=== PATIENT | male | born 1985 | race Two or more races ===

== ENCOUNTER 2024-02-15 11:31 | Emergency (ER) | payer MEDICAID, OTHER ==
[~2024-02-15] VITALS: Ht 180.3 cm; Wt 81.8 kg
--- NOTE | 2024-02-15 12:38 | DVH ---
INDICATION: PAIN POST LIFTING TECHNIQUE: 2 views of the lumbar spine were obtained. COMPARISON: None FINDINGS: There are no acute fractures or subluxations. IMPRESSION: No acute fracture or subluxation.
[2024-02-15 13:01] VITALS: BP 128/77; PULSE 76; RESP 16; TEMP 97.5; O2SAT 98
[2024-02-15] MEDS ORDERED: IBUP-1456 PO (13:38)
[2024-02-15] MEDS ORDERED: PRED20TA2 PO (13:38)
--- NOTE | 2024-02-15 13:40 | ED.PDOC ---
Back pain HPI HPI Comments A 38 YEAR OLD MALE PRESENTS TO THE ED WITH CHIEF COMPLAINT OF LOWER BACK PAIN. PATIENT REPORTS THAT HE HAD BEEN LIFTING AND LOWERING BOXES YESTERDAY WHEN ALL OF A SUDDEN, HE FELT A "POP" IN HIS LOWER BACK AND IS NOW UNABLE TO STAND UP WELL WITHOUT PAIN. PATIENT RELAYS THAT HIS PAIN RADIATES DOWN HIS LEFT LEG. PATIENT DENIES ANY NUMBNESS, WEAKNESS, DIZZINESS, FALL, OR INJURY. Chief Complaint: Back Pain Time Seen by MD: 13:37 Primary Care Provider: NONE Reviewed Notes: Nurses Notes, Medications, Allergies Home Meds Active Scripts Prednisone (Prednisone) 20 Mg Tab, 40 MG PO DAILY, #20 TAB Prov:SOLIS ELLER 02/15/24 Ibuprofen (Ibuprofen) 800 Mg Tab, 1 TAB PO TID, #30 TAB Prov:SOLIS ELLER 02/15/24 Information Source: Patient Mode of Arrival: Wheelchair Timing: Days Duration: Since onset Location of Back pain: (B) Lower back Radiates to: Posterior: (L) Thigh Severity: Moderate Prehospital treatment: None Quality: Sharp Onset: Bending, Lifing History of: None Modifying Factors: Nothing Associated signs and symptoms: None Past Medical History PAST MEDICAL HISTORY: Denies Surgical History: Denies all surgeries Family History Family History: Reviewed,noncontributory to illness Social History Smoker: Non-Smoker Alcohol: Denies ETOH Use Drugs: Denies Drug Use Lives In: Home Constitutional: denies: chills, diaphoresis, fatigue, fever, malaise, sweats, weakness, others EENTM: denies: blurred vision, double vision, ear bleeding, ear discharge, ear drainage, ear pain, ear ringing, eye pain, eye redness, hearing loss, mouth pain, mouth swelling, nasal discharge, nose bleeding, nose congestion, nose pain, photophobia, tearing, throat pain, throat swelling, voice changes, others Respiratory: denies: cough, hemoptysis, orthopnea, SOB at rest, shortness of breath, SOB with excertion, stridor, wheezing, others Cardiovascular: denies: chest pain, dizzy spells, diaphoresis, Dyspnea on exertion, edema, irregular heart beat, left arm pain, lightheadedness, palpitations, PND, syncope, others Gastrointestinal: denies: abdomen distended, abdominal pain, blood streaked bowels, constipated, diarrhea, dysphagia, difficulty swallowing, hematemesis, melena, nausea, poor appetite, poor fluid intake, rectal bleeding, rectal pain, vomiting, others Genitourinary: denies: burning, dysuria, flank pain, frequency, hematuria, incontinence, penile discharge, penile sore, pain, testicle pain, testicle swelling, urgency, others Neurological: denies: dizziness, fainting, headache, left sided numbness, left sided weakness, numbness, paresthesia, pre-existing deficit, right sided numbness, right sided weakness, seizure, speech problems, tingling, tremors, weakness, others Musculoskeletal: reports: back pain, muscle pain; denies: gout, joint pain, joint swelling, muscle stiffness, neck pain, others Integumetry: denies: bruises, change in color, change in hair/nails, dryness, laceration, lesions, lumps, rash, wounds, others Allergic/Immunocompromised: denies: Difficulty Healing, Frequent Infections, Hives, Itching, others Hematologic/Lymphatic: denies: anemia, blood clots, easy bleeding, easy bruising, swollen glands, others Endocrine: denies: excessive hunger, excessive sweating, excessive thirst, excessive urination, flushing, intolerance to cold, intolerance to heat, unexplained weight gain, unexplained weight loss, others Psychiatric: denies: anxiety, bipolar disorder, depression, hopeless, panic disorder, schizophrenia, sleepless, suicidal, others All Other Systems: Reviewed and Negative Physical Exam General Appearance: No Apparent Distress, Normal HEENT: Normal ENT Inspection, PERRL/EOMI, Pharynx Normal Neck: Full Range of Motion, Non-Tender, Normal, Normal Inspection Respiratory: Chest Non-Tender, Lungs Clear, No Accessory Muscle Use, No Respiratory Distress, Normal Breath Sounds Cardiovascular: No Edema, No JVD, No Murmur, No Gallop, Normal Peripheral Pulses, Regular Rate/Rhythm Breast Exam: Deferred Gastrointestinal: No Organomegaly, Non Tender, No Pulsatile Mass, Normal Bowel Sounds, Soft Genitalia: Deferred Pelvic: Deferred Rectal: Deferred Extremities: No calf tenderness, Normal capillary refill, Normal inspection, Normal range of motion, Non-tender, No pedal edema Musculoskeletal : Location: Bilateral Extremity Location: Back Apperance: Tenderness: Moderate (TENDERNESS AND MUSCLE SPASM ON LOWER BACK, NO BONY TENDERNESS, SWELLING AND DEFORMITY. ) Neurologic: Alert, gandy dancer II-XII nml as Tested, No Motor Deficits, Normal Affect, Normal Mood, No Sensory Deficits Cerebellar Function: Normal Reflexes: Normal Skin: Dry, Normal Color, Warm Peripheral Pulses: 2+ carotid (R), 2+ carotid (L) Lymphatic: No Adenopathy Was a procedure done? Was a procedure done?: No Back Pain Differential Dx Differential Diagnosis: Musculoskeletal Pain, Other (LOWER BACK PAIN WITH LEFT SCIATICA) X-Ray, Labs, Meds, VS Vital Signs Date Time Temp Pulse Resp B/P (MAP) Pulse Ox O2 Delivery O2 Flow Rate FiO2 02/15/24 13:01 97.5 76 16 128/77 (94) 98 97.5 02/15/24 11:49 97.9 95 20 143/90 (107) 97 LUMBAR XR: PATIENT: KVNG LEWIS ACCT: [id number] UNIT: [id number] : 1985 LOC: ER ROOM / BED: / AGE / SEX: 38 / M ADM STATUS: REG ER SERVICE 1218 ORDERING PHYSICIAN: SOLIS ELLER PROCEDURE(s): LUMB2 - LUMBAR SPINE 3 VIEW REASON: PAIN POST LIFTING ORDER NUMBER(s): [id number], ACCESSION NUMBER(s): [id number] INDICATION: PAIN POST LIFTING TECHNIQUE: 2 views of the lumbar spine were obtained. COMPARISON: None FINDINGS: There are no acute fractures or subluxations. IMPRESSION: No acute fracture or subluxation. ATED BY: AL CARDOSO MD DICTATED DATE/TIME: 02/15/24 1236 SIGNED BY: AL CARDOSO MD SIGNED DATE/TIME: 02/15/24 1236 CC: X-Ray, Labs, Meds, VS Comment - I reviewed the following notes from patient's past medical encounters: NA - The following tests were ordered, and results were reviewed by me: LUMBAR XR - Additional information was gathered from interviewing the following independe nt Historian: NA - I reviewed and agreed with the following test results read by other provider: LUMBAR XR - I discussed treatments and results with medical personnel. TREATMENT: TORADOL 60MG IM, NORCO 10/325MG PO Time of Reevaluation: 14:20 Reevaluation 1ST: Improved Patient Education/Counseling: Diagnosis, Treatment, Need For Follow Up Family Education/Counseling: Diagnosis, Treatment, Need For Follow Up Medical Screening: No EMC Exist At This Time Departure 1 Departure Time of Disposition: 14:30 Impression: Primary Impression: Low back strain Qualified Codes: S39.012A - Strain of muscle, fascia and tendon of lower back, initial encounter Disposition: HOME / SELF CARE / HOMELESS Condition: Stable Additional Instructions: FOLLOW UP WITH PCP WITHIN 2-3 DAYS. e-Prescriptions Prednisone (Prednisone) 20 Mg Tab 40 MG PO DAILY, #20 TAB Prov: SOLIS ELLER 02/15/24 Ibuprofen (Ibuprofen) 800 Mg Tab 1 TAB PO TID, #30 TAB Prov: SOLIS ELLER 02/15/24 Discharged With: Self Critical Care Note Critical Care Time?: No Stability Stability form required: No Heart Score Heart Score: Heart Score Response (Comments) Value History N/A 0 EKG N/A 0 Age N/A 0 Risk Factors N/A 0 Troponin N/A 0 Total 0 I personally scribed for SOLIS ELLER ([email or web address]) on 02/15/24 at 13:39. Elect ronically submitted by Franklin Hilario ([email or web address]). I personally scribed for SOLIS ELLER ([email or web address]) on 02/15/24 at 13:41. Electron ically submitted by Franklin Hilario ([email or web address]). I personally scribed for SOLIS ELLER ([email or web address]) on 02/15/24 at 13:41. Electronically submitted by Franklin Hilario ([email or web address]). SOLIS ELLER Feb 15, 2024 13:39
[2024-02-15] MEDS: KETOROLAC TROMETH 60MG/2ML VIAL IM ONE (14:07)
[2024-02-15] MEDS: HYDROcodone-ACET 10/325MG TAB PO ONE (14:07)
== END 2024-02-15 14:16 | disposition home or self-care (01) ==
LOC: ER 11:31
DX: S39.012A Strain of muscle, fascia and tendon of lower back, initial encounter (principal); Z79.1 Long term (current) use of non-steroidal anti-inflammatories (NSAID); Z79.52 Long term (current) use of systemic steroids; X50.0XXA Overexertion from strenuous movement or load, initial encounter; Y93.89 Activity, other specified; Y92.89 Other specified places as the place of occurrence of the external cause; Y99.8 Other external cause status
CPT/HCPCS: 72100; 96372; 99283; J1885